=== PATIENT | female | born 1985 | race Caucasian/White ===

== ENCOUNTER → 2020-03-07 | Outpatient (CLI) | payer OTHER | END | disposition home or self-care (01) | LOC: LAB 14:41 | PROVIDERS: ATTEND Obstetrics & Gynecology | DX: Z34.81 Encounter for supervision of other normal pregnancy, first trimester (principal); Z3A.00 Weeks of gestation of pregnancy not specified | CPT/HCPCS: 81420 ==

== ENCOUNTER → 2020-06-06 | Outpatient (CLI) | payer OTHER ==
[2020-06-06 11:19] LABS: MEAN CORPUSCULAR HEMOGLOBIN 31.3 pg (27.0-34.8); MEAN CORPUSCULAR HGB CONC 32.9 g/dL (32.4-35.8); MEAN CORPUSCULAR VOLUME 95.1 fL (80-100); MEAN PLATELET VOLUME 7.7 fL (7.4-10.4); PLATELET COUNT 269 x10^3/uL (130-400); RED BLOOD COUNT 4.21 x10^6/uL (3.82-5.3); RED CELL DISTRIBUTION WIDTH 13.3 % (9.6-15.2)
== END | disposition home or self-care (01) ==
LOC: LAB 10:02
PROVIDERS: ATTEND Obstetrics & Gynecology
DX: Z34.82 Encounter for supervision of other normal pregnancy, second trimester (principal); Z3A.00 Weeks of gestation of pregnancy not specified
CPT/HCPCS: 36415; 82306; 82728; 82950; 85027; 86592

== ENCOUNTER 2020-09-06 01:44 | Inpatient (IN) | payer OTHER ==
[~2020-09-06] VITALS: Ht 162.6 cm; Wt 77.2 kg
[2020-09-06 01:49] VITALS: BP 118/75
[2020-09-06] MEDS ORDERED: NEWBORN KIT ONE (02:23)
[2020-09-06] MEDS ORDERED: LACTATED RINGERS 1,000 ML IV SCH (02:30)
[2020-09-06] MEDS ORDERED: TERBUTALINE 1 MG/ML, 1ML SQ PRN (02:30)
[2020-09-06] MEDS ORDERED: CALCIUM CARBONATE 500 MG TAB.CHEW PO PRN (02:30)
[2020-09-06] MEDS ORDERED: TERBUTALINE 1 MG/ML, 1ML IVPush PRN (02:30)
[2020-09-06] MEDS ORDERED: OXYTOCIN 30U/ 0.9% NaCL 500ML 500 ML IV ONE (02:30)
[2020-09-06] MEDS ORDERED: FENTANYL PF 100 MCG/2ML IVPush PRN (02:30)
[2020-09-06] MEDS ORDERED: ONDANSETRON 2MG/ML, 2ML IVPush PRN (02:30)
[2020-09-06] MEDS ORDERED: FENTANYL PF 100 MCG/2ML IV PRN (02:30)
[2020-09-06 02:36] LABS: BASOPHILS % (AUTO) 1 % (0-1); EOSINOPHILS % (AUTO) 1 % (1-7); LYMPHOCYTES % (AUTO) 21 % (22-44); MEAN CORPUSCULAR HEMOGLOBIN 31.8 pg (27.0-34.8); MEAN CORPUSCULAR HGB CONC 34.5 g/dL (32.4-35.8); MEAN PLATELET VOLUME 8.5 fL (7.4-10.4); MONOCYTES % (AUTO) 6 % (2-9); NEUTROPHILS % (AUTO) 71 % (42-75); PLATELET COUNT 245 x10^3/uL (130-400); RED BLOOD COUNT 4.18 x10^6/uL (3.82-5.3)
[2020-09-06 02:37] LABS: MD NO
[2020-09-06] MEDS ORDERED: LIDOCAINE 1%, 20ML ONE (06:39)
[2020-09-06] MEDS ORDERED: MISOPROSTOL 200 MCG TABLET ONE (06:39)
[2020-09-06] MEDS ORDERED: OXYTOCIN 30U/ 0.9% NaCL 500ML 500 ML ONE (06:39)
[2020-09-06] MEDS ORDERED: IBUPROFEN 600 MG TABLET ONE (20:28)
[2020-09-06] MEDS ORDERED: ONDANSETRON 2MG/ML, 2ML IV PRN (20:30)
[2020-09-06] MEDS ORDERED: SIMETHICONE 80 MG CHEW TAB PO PRN (20:30)
[2020-09-06] MEDS ORDERED: DOCUSATE 100 MG CAPSULE PO PRN (20:30)
[2020-09-06] MEDS ORDERED: MISOPROSTOL 200 MCG TABLET PR PRN (20:30)
[2020-09-06] MEDS ORDERED: ACETAMINOPHEN 325 MG TABLET PO PRN (20:30)
[2020-09-06] MEDS: OXYTOCIN 30U/ 0.9% NaCL 500ML 500 ML IV SCH (20:30)
[2020-09-06] MEDS ORDERED: MEASLES,MUMPS&RUBELLA VACC/PF 0.5 ML SQ-VACC PRN (20:30)
[2020-09-06] MEDS: IBUPROFEN 800 MG TABLET PO PRN (20:40)
[2020-09-06 22:50] VITALS: BP 106/71
[2020-09-07 02:42] VITALS: BP 106/69
[2020-09-07 03:57] LABS: BASOPHILS % (AUTO) 1 % (0-1); EOSINOPHILS % (AUTO) 0 % (1-7); LYMPHOCYTES % (AUTO) 13 % (22-44); MD NO; MEAN CORPUSCULAR HEMOGLOBIN 31.4 pg (27.0-34.8); MEAN CORPUSCULAR HGB CONC 34.1 g/dL (32.4-35.8); MEAN PLATELET VOLUME 8.5 fL (7.4-10.4); MONOCYTES % (AUTO) 7 % (2-9); NEUTROPHILS % (AUTO) 79 % (42-75); PLATELET COUNT 237 x10^3/uL (130-400); RED BLOOD COUNT 3.91 x10^6/uL (3.82-5.3); RED CELL DISTRIBUTION WIDTH 13.1 % (9.6-15.2)
[2020-09-07] MEDS: IBUPROFEN 800 MG TABLET PO PRN ×2 (06:24→17:15)
[2020-09-07] MEDS: OXYTOCIN 30U/ 0.9% NaCL 500ML 500 ML IV SCH ×2 (06:30→16:30)
[2020-09-07 06:50] VITALS: BP 113/77
[2020-09-07] MEDS ORDERED: IBUP-1222 PO (08:59)
[2020-09-07] MEDS ORDERED: PRENATAL VIT/IRON/FA 1 EACH TABLET PO SCH (09:00)
[2020-09-07 12:00] VITALS: BP 102/67
[2020-09-07 16:30] VITALS: BP 115/79
== END 2020-09-07 19:00 | disposition home or self-care (01) | DRG 807 ==
LOC: LDOP 01:44 → LDIP 02:21 → 2NW 22:25
PROVIDERS: ADMIT Obstetrics & Gynecology; ATTEND Obstetrics & Gynecology
PROC: 10E0XZZ Delivery of Products of Conception, External Approach (ICD-10-PCS; principal; 2020-09-06)
PROC: 10907ZC Drainage of Amniotic Fluid, Therapeutic from Products of Conception, Via Natural or Artificial Opening (ICD-10-PCS; 2020-09-06)
PROC: 0HQ9XZZ Repair Perineum Skin, External Approach (ICD-10-PCS; 2020-09-06)
DX: O99.354 Diseases of the nervous system complicating childbirth (principal); Z37.0 Single live birth; E55.9 Vitamin D deficiency, unspecified; G43.909 Migraine, unspecified, not intractable, without status migrainosus; F32.9 Major depressive disorder, single episode, unspecified; O70.0 First degree perineal laceration during delivery; Z20.828 Contact with and (suspected) exposure to other viral communicable diseases; O99.284 Endocrine, nutritional and metabolic diseases complicating childbirth; Z3A.38 38 weeks gestation of pregnancy; Z80.3 Family history of malignant neoplasm of breast; Z82.3 Family history of stroke; Z82.49 Family history of ischemic heart disease and other diseases of the circulatory system; Z83.3 Family history of diabetes mellitus
CPT/HCPCS: 36415; 85025; 86592; 86850; 86900; 87635; G0378; J7120